=== PATIENT | female | born 1995 | race African-American/Black ===

== ENCOUNTER 2022-07-20 09:51 | Emergency (ER) | payer BC ==
[~2022-07-20] VITALS: Ht 162.6 cm; Wt 81.6 kg
[2022-07-20 09:51] VITALS: BP 144/73
--- NOTE | 2022-07-20 10:15 | NUR ---
pt on bed comfortably came to er due to swelling of lips took BENADRYL AT 0400
[2022-07-20] MEDS ORDERED: DIPH25CA83 PO (10:46)
[2022-07-20] MEDS ORDERED: FAMO-131 PO (10:46)
[2022-07-20] MEDS ORDERED: PRED20TA PO (10:46)
[2022-07-20] MEDS ORDERED: predniSONE 20 MG TABLET PO ONE (11:00)
[2022-07-20] MEDS ORDERED: predniSONE 20 MG TABLET ONE (11:18)
== END 2022-07-20 11:29 | disposition home or self-care (01) ==
LOC: ER 09:53
DX: T78.3XXA Angioneurotic edema, initial encounter (principal)
CPT/HCPCS: 99283; J7512

== ENCOUNTER 2022-08-04 07:16 | Emergency (ER) | payer BC ==
[~2022-08-04] VITALS: Ht 162.6 cm; Wt 81.6 kg
[~2022-08-04 07:16] MED LIST: DIPH25CA83 PO; FAMO-131 PO; PRED20TA PO
--- NOTE | 2022-08-04 07:40 | NUR ---
C/O RIGHT EYE SWELLING SINCE LAST NIGHT S/P PT DENIES ANY TRAUMA TO AREA. STARTED WITH ITCHINESS OF LT EYEBROW, TOOK BENADRYL 1X, CLAIMS , NAUSEATED. HX OF ANGIOEDEMA SEE VASCULAR ULTRASOUND TECHNOLOGIST LAST JUL 29 2022. PUT ON BEDSIDE MONITOR.
--- NOTE | 2022-08-04 07:43 | NUR ---
DR BECKFORD AT BED SIDE FOR EVAL.
--- NOTE | 2022-08-04 07:43 | NUR ---
OFFERED CUP OF WATER AFTER INFORMING DR BECKFORD
[2022-08-04] MEDS ORDERED: PRED20TA PO (07:44)
[2022-08-04] MEDS ORDERED: ERYT3.5O9 EACHEYE (07:44)
[2022-08-04] MEDS ORDERED: predniSONE 20 MG TABLET ONE (07:46)
[2022-08-04] MEDS ORDERED: FAMOTIDINE (20 MG) 20 MG TABLET ONE (07:46)
[2022-08-04] MEDS ORDERED: CEPH250C PO (07:49)
[2022-08-04] MEDS ORDERED: FAMOTIDINE (20 MG) 20 MG TABLET PO ONE (08:00)
[2022-08-04] MEDS ORDERED: predniSONE 50 MG TABLET PO ONE (08:00)
--- NOTE | 2022-08-04 08:00 | NUR ---
Patient discharged to home in stable condition. Written and verbal after care instructions given. Patient verbalizes understanding of instruction.
[2022-08-04 08:01] VITALS: BP 120/86
== END 2022-08-04 08:03 | disposition home or self-care (01) ==
LOC: ER 07:18
DX: H05.221 Edema of right orbit (principal); H01.003 Unspecified blepharitis right eye, unspecified eyelid; Z79.2 Long term (current) use of antibiotics; Z79.899 Other long term (current) drug therapy
CPT/HCPCS: 99283; J7512

== ENCOUNTER 2023-03-19 09:18 | Emergency (ER) | payer BC ==
[~2023-03-19] VITALS: Ht 162.6 cm; Wt 81.2 kg
[~2023-03-19 09:18] MED LIST changes: +CEPH250C PO; +ERYT3.5O9 EACHEYE
[2023-03-19 09:25] VITALS: TEMP 98.3
[2023-03-19] MEDS ORDERED: ACETAMINOPHEN 325 MG TABLET ONE (09:44)
[2023-03-19] MEDS: ACETAMINOPHEN 325 MG TABLET PO ONE (09:46)
[2023-03-19 10:06] LABS: APPEARANCE,URINE SLIGHTLY CLOUDY (CLEAR); BILIRUBIN,URINE NEGATIVE (NEGATIVE); BLOOD, URINE NEGATIVE Ery/uL (NEGATIVE); COLOR,URINE YELLOW (YELLOW); KETONES,URINE NEGATIVE (NEGATIVE); LEUKOCYTE ESTERASE ,URINE NEGATIVE (NEGATIVE); NITRITE, URINE NEGATIVE (NEGATIVE); PH,URINE 5.5 (5.0-8.0); PROTEIN,URINE NEGATIVE (NEGATIVE); UGLUCOSE NEGATIVE (NEGATIVE); UROBILINOGEN,URINE 0.2 EU/dL (0.2)
[2023-03-19 10:19] LABS: ALANINE AMINOTRANSFERASE 31 U/L (12-78); ALBUMIN 3.2 g/dL (3.4-5.0); ALKALINE PHOSPHATASE 61 U/L (46-116); ASPARTATE AMINOTRANSFERASE 19 U/L (15-37); BILIRUBIN,DIRECT 0.1 mg/dL (0.0-0.2); BILIRUBIN,TOTAL 0.2 mg/dL (0.2-1.0); CALCIUM, SERUM 9.3 mg/dL (8.5-10.1); CARBON DIOXIDE 28 mmol/L (21-32); CHLORIDE 105 mmol/L (98-107); GLUCOSE 91 mg/dL (74-106); LIPASE 35 U/L (16-77); SODIUM SERUM 139 mmol/L (136-145); TOTAL PROTEIN, SERUM 7.6 g/dL (6.4-8.2); UREA NITROGEN, BLOOD 7 mg/dL (7-18)
[2023-03-19 10:40] LABS: RBC,URINE 0-2 /HPF (0-2); SQUAMOUS EPITHELIAL CELL,UR Few /HPF (None Seen)
[2023-03-19 10:41] LABS: ADD URINE CULTURE YES; BACTERIA,URINE Moderate /HPF (None Seen)
[2023-03-19 11:21] LABS: BASOPHILS % (AUTO) 0.2 % (0.0-2.0); EOSINOPHILS % (AUTO) 1.1 % (0.0-6.0); HEMATOCRIT 39 % (33-45); HEMOGLOBIN 12.9 g/dL (11.5-14.8); LYMPHOCYTES # (AUTO) 1.4 K/uL (0.8-4.8); LYMPHOCYTES % (AUTO) 35.2 % (20.0-44.0); MEAN CORPUSCULAR HEMOGLOBIN 29 PG (26.0-33.0); MEAN CORPUSCULAR HGB CONC 33 g/dl (31.0-36.0); MEAN CORPUSCULAR VOLUME 88 fL (82-100); MONOCYTES # (AUTO) 0.6 K/uL (0.1-1.30); MONOCYTES % (AUTO) 14.1 % (2.0-12.0); NEUTROPHILS % (AUTO) 49.4 % (43.0-81.0); PLATELET COUNT (AUTO) 290 K/uL (150-450); RED BLOOD CELL COUNT(AUTO) 4.43 MIL/uL (4.0-5.2); RED CELL DISTRIBUTION WIDTH 15.7 % (11.5-15.0); WHITE BLOOD COUNT (AUTO) 4.1 K/uL (4.3-11.0)
[2023-03-19 11:34] LABS: PREGNANCY TEST URINE QUAL NEGATIVE (NEGATIVE)
[2023-03-19] MEDS ORDERED: KETOROLAC TROMETHAMINE 15 MG/ML VIAL ONE (11:58)
[2023-03-19] MEDS ORDERED: KETOROLAC TROMETHAMINE 15 MG/ML VIAL IV ONE (12:00)
[2023-03-19] MEDS ORDERED: NITR100C15 PO (13:30)
[2023-03-19 13:43] VITALS: BP 119/69; O2SAT 99
== END 2023-03-19 13:43 | disposition home or self-care (01) ==
LOC: ER 09:18
DX: N39.0 Urinary tract infection, site not specified (principal); R10.2 Pelvic and perineal pain
CPT/HCPCS: 36415; 76856-TC; 80048-TC; 80076-TC; 81001; 83690-TC; 84484-TC; 84703-TC; 85025-TC; 87086-TC; J1885

== ENCOUNTER 2024-08-05 21:14 | Emergency (ER) | payer BC ==
[~2024-08-05 21:14] MED LIST changes: +NITR100C15 PO
== END 2024-08-05 22:16 | disposition left against medical advice (07) ==
LOC: ER 21:16
DX: R22.9 Localized swelling, mass and lump, unspecified (principal); Z53.21 Procedure and treatment not carried out due to patient leaving prior to being seen by health care provider